=== PATIENT | female | born 1955 | race Hispanic/Latino ===

== ENCOUNTER → 2017-07-20 | Outpatient (CLI) | payer OTHER ==
--- NOTE | 2017-07-20 19:04 | Diagnostic Imaging Report ---
Exam: Cervical spine MRI without IV contrast History: Osteoarthritis. Pain and numbness in back of neck Comparison studies: None Technique: Sagittal T1, T2 and IR, axial T2 and axial gradient echo Intravenous contrast: None Findings: Alignment: Straightened cervical curvature. Cervicomedullary junction: No abnormalities. Patent foramen magnum. Soft tissues: No T2 hyperintense inflammatory changes. Spinal cord: Normal in size and signal from the foramen magnum through T1. Vertebrae: No fractures, infection or neoplasm. Degenerative changes: C2-C3: Patent canal and foramina. C3-C4: Small central disc protrusion indents the thecal sac without canal stenosis. Patent foramina. C4-C5: Mildly degenerated disc. Small disc osteophyte complex indents the thecal sac without significant canal stenosis. Mild bilateral frontal stenosis due to uncovertebral arthrosis C5-C6: Moderately degenerated disc. Moderate canal stenosis due to disc osteophyte complex and uncovertebral arthrosis. Moderate bilateral foraminal stenosis due to uncovertebral arthrosis. C6-C7: Mild bilateral foraminal stenosis due to uncovertebral arthrosis. No canal stenosis. C7-T1: Patent canal and foramina. IMPRESSION: 1. Degenerative changes at C5-C6 with moderate disc degeneration, moderate canal stenosis and moderate bilateral foraminal stenosis 2. Additional mild multilevel degenerative changes without significant canal or foraminal stenosis at the remaining cervical levels. 3. No cervical cord signal abnormalities. Signed by: Dr. Bernard Walker M.D. on 07/20/2017 7:01 PM
== END ==
LOC: MRI 10:34
PROVIDERS: ATTEND Internal Medicine Cardiovascular Disease
DX: R07.9 Chest pain, unspecified (principal); M15.9 Polyosteoarthritis, unspecified
CPT/HCPCS: 72141

== ENCOUNTER 2022-04-15 08:47 | Inpatient (IN) | payer MEDICARE, BC ==
[2022-04-13 15:31] LABS: BASOPHILS % 0.5 % (0.0-1.0); EOSINOPHILS # (AUTO) 0.1 (0.0-0.4); EOSINOPHILS % 1.5 % (0.0-6.0); HEMATOCRIT 38.2 % (34.2-44.1); HEMOGLOBIN 12.2 g/dL (12.0-16.0); LYMPHOCYTES # (AUTO) 3.4 (1.0-3.2); LYMPHOCYTES % 45.6 % (18.0-39.1); MEAN CORPUSCULAR HEMOGLOBIN 31.1 pg (28-32); MEAN CORPUSCULAR HGB CONC 31.9 g/dL (31-35); MEAN CORPUSCULAR VOLUME 97.4 fL (81-99); MONOCYTES # (AUTO) 0.5 (0.2-0.8); MONOCYTES % 6.8 % (4.4-11.3); NEUTROPHILS # (AUTO) 3.4 (2.1-6.9); NEUTROPHILS % 45.5 % (38.7-80.0); PLATELET COUNT 331 x10e3/uL (140-360); RED BLOOD COUNT 3.92 x10e6/uL (3.6-5.1); RED CELL DISTRIBUTION WIDTH 11.7 % (11.7-14.4)
[2022-04-13 15:48] LABS: ANION GAP 13.2 mmol/L (8-16); CALCIUM 8.9 mg/dL (8.4-10.2); CREATININE, SERUM 0.75 mg/dL (0.57-1.11); POTASSIUM 4.2 mmol/L (3.5-5.1)
[~2022-04-15] VITALS: Ht 149.9 cm; Wt 77.6 kg
[~2022-04-15 08:47] MED LIST: CLONAZEPAM0.5 MG PO; HUMALOG100 UNIT/1 SQ; HYDROCODON-ACE1 EA11 PO; LEVOTHYROXINE75 MCG PO; TRAZODONE HCL100 MG PO; TRESIBA100 UNIT/1 SQ; VITAMIN B122500 MCG SL; VITAMIN D3250 MCG PO
[2022-04-15] MEDS ORDERED: SILVER SULFADIAZINE 25 GM CREAM..G. TP ONE (09:09)
[2022-04-15] MEDS ORDERED: GENTAMICIN 80MG/NS 100 ML 200 ML IV ONE (09:36)
[2022-04-15] MEDS ORDERED: CLINDAMYCIN 600MG / 50ML 50 ML IV ONE (09:36)
[2022-04-15] MEDS ORDERED: LEVOFLOXACIN 500MG/D5W 100ML 100 ML IV ONE (09:37)
[2022-04-15] MEDS ORDERED: LIDOCAINE 2%/ EPINEPHRINE 20ML MDV ONE (11:05)
[2022-04-15] MEDS ORDERED: GENTAMICIN SULFATE 40 MG/ML 2 ML VIAL ONE (11:05)
[2022-04-15] MEDS ORDERED: BACITRACIN ZINC 15 GM OINT ONE (11:05)
[2022-04-15] MEDS ORDERED: IOPAMIDOL 300MG/ML 50ML INFUS..BTL IV ONE (11:06)
[2022-04-15] MEDS ORDERED: BUPIVACAINE HCL 0.5% INJ 30 ML VIAL INJ ONE (11:06)
[2022-04-15] MEDS ORDERED: MIDAZOLAM HCL 2 MG/2 ML VIAL ONE (13:06)
[2022-04-15] MEDS ORDERED: FENTANYL CITRATE/PF 100MCG/2 ML INJ ONE ×2 (13:06→14:28)
[2022-04-15] MEDS ORDERED: ACETAMINOPHEN 1000 MG/100 ML IV PRN (14:00)
[2022-04-15] MEDS ORDERED: ONDANSETRON HCL INJ 2MG/ML 2ML 2 MG/ML VIAL IV PRN (14:00)
[2022-04-15] MEDS ORDERED: DIPHENHYDRAMINE HCL 25 MG CAP PO PRN (14:00)
[2022-04-15] MEDS ORDERED: SUGAMMADEX SODIUM 200 MG/2 ML VIAL IV ONE (14:17)
[2022-04-15] MEDS ORDERED: HYDROMORPHONE 1MG/1ML INJ ONE (14:33)
[2022-04-15] MEDS ORDERED: PROMETHAZINE HCL (IM) 25 MG/ML VIAL IM ONE (14:39)
[2022-04-15 15:58] VITALS: BP 123/58
[2022-04-15 16:00] VITALS: BP 123/58
[2022-04-15 16:10] LABS: BASOPHILS % 0.2 % (0.0-1.0); HEMATOCRIT 38.2 % (34.2-44.1); HEMOGLOBIN 12.3 g/dL (12.0-16.0); LYMPHOCYTES # (AUTO) 1.1 (1.0-3.2); LYMPHOCYTES % 11.4 % (18.0-39.1); MEAN CORPUSCULAR HEMOGLOBIN 31.2 pg (28-32); MEAN CORPUSCULAR HGB CONC 32.2 g/dL (31-35); MONOCYTES # (AUTO) 0.1 (0.2-0.8); NEUTROPHILS # (AUTO) 8.2 (2.1-6.9); PLATELET COUNT 300 x10e3/uL (140-360); RED BLOOD COUNT 3.94 x10e6/uL (3.6-5.1); RED CELL DISTRIBUTION WIDTH 11.9 % (11.7-14.4)
[2022-04-15 16:30] LABS: ANION GAP 14.5 mmol/L (8-16); CALCIUM 8.6 mg/dL (8.4-10.2); CREATININE, SERUM 0.73 mg/dL (0.57-1.11); POTASSIUM 3.5 mmol/L (3.5-5.1)
[2022-04-15] MEDS: SODIUM CHLORIDE 0.9% 1000ML 1,000 ML IV SCH (17:13)
[2022-04-15] MEDS: DOCUSATE SODIUM 100 MG CAP PO SCH (17:13)
[2022-04-15 20:00] VITALS: BP 107/53
[2022-04-15 21:00] VITALS: BP 107/53
[2022-04-15] MEDS: HYDROCODONE/APAP 10MG-325MG TAB PO PRN (23:22)
[2022-04-15] MEDS: TRAZODONE HCL 50 MG TAB PO SCH (23:45)
[2022-04-16] VITALS (8 sets, daily range): BP systolic 98–110; BP diastolic 45–63
[2022-04-16] MEDS: PHENAZOPYRIDINE HCL 100 MG TAB PO PRN ×4 (00:09→16:33)
[2022-04-16] MEDS: CLONAZEPAM 0.5 MG TAB PO PRN ×2 (00:10→20:10)
[2022-04-16] MEDS: HYDROCODONE/APAP 10MG-325MG TAB PO PRN ×5 (03:38→23:10)
[2022-04-16 05:48] LABS: BASOPHILS % 0.2 % (0.0-1.0); EOSINOPHILS % 0.2 % (0.0-6.0); HEMATOCRIT 29.9 % (34.2-44.1); HEMOGLOBIN 10.4 g/dL (12.0-16.0); LYMPHOCYTES % 16.8 % (18.0-39.1); MEAN CORPUSCULAR HEMOGLOBIN 31.6 pg (28-32); MEAN CORPUSCULAR HGB CONC 34.8 g/dL (31-35); MEAN CORPUSCULAR VOLUME 90.9 fL (81-99); MONOCYTES # (AUTO) 0.5 (0.2-0.8); MONOCYTES % 4.5 % (4.4-11.3); NEUTROPHILS # (AUTO) 9.2 (2.1-6.9); NEUTROPHILS % 77.9 % (38.7-80.0); PLATELET COUNT 263 x10e3/uL (140-360); RED BLOOD COUNT 3.29 x10e6/uL (3.6-5.1); RED CELL DISTRIBUTION WIDTH 11.9 % (11.7-14.4)
[2022-04-16 06:17] LABS: ANION GAP 11.7 mmol/L (8-16); CALCIUM 7.9 mg/dL (8.4-10.2); CREATININE, SERUM 0.64 mg/dL (0.57-1.11); POTASSIUM 3.7 mmol/L (3.5-5.1)
[2022-04-16] MEDS: SODIUM CHLORIDE 0.9% 1000ML 1,000 ML IV SCH ×2 (06:23→16:43)
[2022-04-16] MEDS: NON-FORMULARY MEDICATION (Insulin Degludec (Tresiba) 25 UNITS) SQ SCH (09:00)
[2022-04-16] MEDS: DOCUSATE SODIUM 100 MG CAP PO SCH ×2 (09:20→16:34)
[2022-04-16] MEDS: LEVOTHYROXINE SODIUM 75 MCG TAB PO SCH (09:20)
[2022-04-16] MEDS: LEVOFLOXACIN 500MG/D5W 100ML 100 ML IV SCH (09:21)
[2022-04-16] MEDS ORDERED: ROCURONIUM BROMIDE 10 MG/ML 5ML VIAL IV ONE (13:53)
[2022-04-16] MEDS ORDERED: SEVOFLURANE INHAL SOLN 250 ML PEN BTL ONE (13:53)
[2022-04-16] MEDS ORDERED: LIDOCAINE HCL 2% LOCAL INJ 5 ML SDV VIAL INJ ONE (13:53)
[2022-04-16] MEDS ORDERED: PROPOFOL IV EMULSION 10 MG/ML 20 ML VIAL ONE (13:53)
[2022-04-16] MEDS ORDERED: DEXAMETHASONE SOD PHOS INJ 4 MG/ML SDV ONE (13:53)
[2022-04-16] MEDS ORDERED: POVIDONE IODINE 0.05% 0.05 % ML PO ONE (13:53)
[2022-04-16] MEDS ORDERED: ONDANSETRON HCL INJ 2MG/ML 2ML 2 MG/ML VIAL ONE (13:53)
[2022-04-16] MEDS: TRAZODONE HCL 50 MG TAB PO SCH (20:09)
[2022-04-17] VITALS: BP 118/58
[2022-04-17 04:00] VITALS: BP 118/57
[2022-04-17 05:57] LABS: BASOPHILS % 0.2 % (0.0-1.0); EOSINOPHILS # (AUTO) 0.1 (0.0-0.4); EOSINOPHILS % 0.7 % (0.0-6.0); HEMATOCRIT 32.2 % (34.2-44.1); HEMOGLOBIN 10.9 g/dL (12.0-16.0); LYMPHOCYTES # (AUTO) 2.7 (1.0-3.2); LYMPHOCYTES % 31.8 % (18.0-39.1); MEAN CORPUSCULAR HEMOGLOBIN 31.1 pg (28-32); MEAN CORPUSCULAR HGB CONC 33.9 g/dL (31-35); MEAN CORPUSCULAR VOLUME 91.7 fL (81-99); MONOCYTES # (AUTO) 0.5 (0.2-0.8); MONOCYTES % 5.8 % (4.4-11.3); NEUTROPHILS # (AUTO) 5.2 (2.1-6.9); NEUTROPHILS % 61.3 % (38.7-80.0); PLATELET COUNT 269 x10e3/uL (140-360); RED BLOOD COUNT 3.51 x10e6/uL (3.6-5.1); RED CELL DISTRIBUTION WIDTH 12.2 % (11.7-14.4)
[2022-04-17 06:17] LABS: ANION GAP 12.6 mmol/L (8-16); CALCIUM 8.4 mg/dL (8.4-10.2); CREATININE, SERUM 0.65 mg/dL (0.57-1.11); POTASSIUM 3.6 mmol/L (3.5-5.1)
[2022-04-17 08:38] VITALS: BP 116/51
[2022-04-17] MEDS: LEVOFLOXACIN 500MG/D5W 100ML 100 ML IV SCH (08:41)
[2022-04-17] MEDS: PHENAZOPYRIDINE HCL 100 MG TAB PO PRN (08:42)
[2022-04-17] MEDS: NON-FORMULARY MEDICATION (Insulin Degludec (Tresiba) 25 UNITS) SQ SCH (08:42)
[2022-04-17] MEDS: DOCUSATE SODIUM 100 MG CAP PO SCH (08:42)
[2022-04-17] MEDS: LEVOTHYROXINE SODIUM 75 MCG TAB PO SCH (08:42)
[2022-04-17 08:50] VITALS: BP 116/51
[2022-04-17] MEDS ORDERED: NON-FORMULARY MEDICATION (Cholecalciferol (Vitamin D3) (Vitamin D3) 50,000 UNITS) PO SCH (09:00)
[2022-04-17] MEDS ORDERED: ONDANSETRON HCL 4 MG ORAL DISINTEGRATING TAB PO PRN (11:15)
[2022-04-18] MEDS ORDERED: LEVOFLOXACIN 500 MG TAB PO SCH (09:00)
== END 2022-04-17 11:24 | disposition home health service (06) | DRG 748 ==
LOC: OR 08:47 → PACU V 13:55 → MED/SURG3 15:34
PROVIDERS: ADMIT Urology; ATTEND Urology
PROC: 0TSD4ZZ Reposition Urethra, Percutaneous Endoscopic Approach (ICD-10-PCS; 2022-04-15)
PROC: 0T788ZZ Dilation of Bilateral Ureters, Via Natural or Artificial Opening Endoscopic (ICD-10-PCS; 2022-04-15)
PROC: BT141ZZ Fluoroscopy of Kidneys, Ureters and Bladder using Low Osmolar Contrast (ICD-10-PCS; 2022-04-15)
PROC: 0JUC3KZ Supplement of Pelvic Region Subcutaneous Tissue and Fascia with Nonautologous Tissue Substitute, Percutaneous Approach (ICD-10-PCS; principal; 2022-04-15 12:19)
DX: N81.10 Cystocele, unspecified (principal); E11.69 Type 2 diabetes mellitus with other specified complication; E03.9 Hypothyroidism, unspecified; Z68.34 Body mass index [BMI] 34.0-34.9, adult; R32 Unspecified urinary incontinence; E66.09 Other obesity due to excess calories; N39.3 Stress incontinence (female) (male); Z20.822 Contact with and (suspected) exposure to COVID-19; K66.0 Peritoneal adhesions (postprocedural) (postinfection); G89.29 Other chronic pain; Z88.0 Allergy status to penicillin; E78.5 Hyperlipidemia, unspecified
CPT/HCPCS: 0223U; 36415; 51700; 71046; 74420; 80048; 82948; 83735; 85025; 93005; 94799; 96361; C1713; C1752; C1758; J1100; J1170; J1580; J1956; J2001; J2250; J2405; J2550; J3010; J7030

== ENCOUNTER 2024-02-03 18:45 | Emergency (ER) | payer MEDICARE, BC ==
[~2024-02-03] VITALS: Ht 149.9 cm; Wt 77.6 kg
[2024-02-03 19:53] LABS: BASOPHILS % 0.6 % (0.0-1.0); EOSINOPHILS # (AUTO) 0.2 (0.0-0.4); EOSINOPHILS % 2.2 % (0.0-6.0); HEMATOCRIT 35.2 % (34.2-44.1); HEMOGLOBIN 11.8 g/dL (12.0-16.0); LYMPHOCYTES # (AUTO) 2.9 (1.0-3.2); LYMPHOCYTES % 40.6 % (18.0-39.1); MEAN CORPUSCULAR HEMOGLOBIN 32.6 pg (28-32); MEAN CORPUSCULAR HGB CONC 33.5 g/dL (31-35); MEAN CORPUSCULAR VOLUME 97.2 fL (81-99); MONOCYTES # (AUTO) 0.5 (0.2-0.8); MONOCYTES % 6.8 % (4.4-11.3); NEUTROPHILS # (AUTO) 3.5 (2.1-6.9); NEUTROPHILS % 49.5 % (38.7-80.0); PLATELET COUNT 281 x10e3/uL (140-360); RED BLOOD COUNT 3.62 x10e6/uL (3.6-5.1); RED CELL DISTRIBUTION WIDTH 11.9 % (11.7-14.4); WHITE BLOOD COUNT 7.16 x10e3/uL (4.8-10.8)
[2024-02-03] MEDS: ONDANSETRON HCL INJ 2MG/ML 2ML 2 MG/ML VIAL IV STA (20:00)
[2024-02-03] MEDS: SODIUM CHLORIDE 0.9% 1000ML 1,000 ML IV STA (20:01)
[2024-02-03] MEDS: Morphine 4mg INJECTION 4 MG/ML INJ IV STA (20:01)
[2024-02-03 20:11] VITALS: PULSE 69; RESP 17; TEMP 98.2
[2024-02-03 20:17] LABS: ALBUMIN 3.9 g/dL (3.5-5.0); ALBUMIN/GLOBULIN RATIO 1.1 (0.8-2.0); ANION GAP 13.9 mmol/L (8-16); BILIRUBIN,TOTAL 0.2 mg/dL (0.2-1.2); CALCIUM 8.6 mg/dL (8.4-10.2); CREATININE, SERUM 0.73 mg/dL (0.57-1.11); POTASSIUM 3.9 mmol/L (3.5-5.1); TOTAL PROTEIN 7.3 g/dL (6.5-8.1)
[2024-02-03 20:23] LABS: TROPONIN I 0.002 ng/mL (0-0.300)
[2024-02-03 20:30] LABS: CLARITY,URINE CLEAR (CLEAR); COLOR,URINE YELLOW (YELLOW); PH,URINE 6.5 (5 - 7)
[2024-02-03 20:31] LABS: BILIRUBIN,URINE NEGATIVE (NEGATIVE); GLUCOSE, URINE NEGATIVE (NEGATIVE); KETONES,URINE NEGATIVE (NEGATIVE); LEUKOCYTE ESTERASE ,URINE NEGATIVE (NEGATIVE); NITRITE,URINE NEGATIVE (NEGATIVE); PROTEIN,URINE DIPSTICK NEGATIVE (NEGATIVE); URINE UROBILINOGEN 0.2 mg/dL (0.2 - 1)
[2024-02-03 20:42] LABS: BACTERIA,URINE FEW /HPF; EPITHELIAL CELLS,URINE MODERATE /LPF; RBC,URINE 0-5 /HPF (0-5); WBC,URINE (MAN) 0-5 /HPF (0-5)
[2024-02-03] MEDS: KETOROLAC TROMETHAMINE 30 MG/ML VIAL IV STA (21:19)
[2024-02-03 22:43] VITALS: BP 118/64; PULSE 68; RESP 18; TEMP 98.2; O2SAT 97
== END 2024-02-03 22:51 | disposition home or self-care (01) ==
LOC: ER 18:48
DX: R10.31 Right lower quadrant pain (principal); R33.9 Retention of urine, unspecified; K59.00 Constipation, unspecified; R11.2 Nausea with vomiting, unspecified; E11.65 Type 2 diabetes mellitus with hyperglycemia; E03.9 Hypothyroidism, unspecified; F41.9 Anxiety disorder, unspecified; Z98.84 Bariatric surgery status
CPT/HCPCS: 36415; 74177; 80053; 81001; 82550; 83690; 84484; 85025; 87086; 93005; 99284; J1885; J2270; J2405; J7030

== ENCOUNTER 2024-07-02 14:03 | Emergency (ER) | payer MEDICARE, BC ==
[~2024-07-02] VITALS: Ht 149.9 cm; Wt 63.5 kg
[2024-07-02 14:19] VITALS: TEMP 99
[2024-07-02] MEDS ORDERED: BENZONATATE100 MG PO (14:25)
[2024-07-02 14:33] VITALS: PULSE 74; RESP 15
[2024-07-02 14:55] LABS: CORONAVIRUS COVID-19 AG NEGATIVE (NEGATIVE); INFLUENZA A AG NEGATIVE (NEGATIVE); INFLUENZA B AG NEGATIVE (NEGATIVE)
[2024-07-02 15:26] VITALS: BP 101/65; PULSE 69; RESP 18; O2SAT 99
== END 2024-07-02 15:53 | disposition home or self-care (01) ==
LOC: ER 14:08
DX: R05.9 Cough, unspecified (principal); B34.9 Viral infection, unspecified; R09.89 Other specified symptoms and signs involving the circulatory and respiratory systems; E11.9 Type 2 diabetes mellitus without complications; E03.9 Hypothyroidism, unspecified; F41.9 Anxiety disorder, unspecified; F32.A Depression, unspecified; Z11.52 Encounter for screening for COVID-19
CPT/HCPCS: 99282

== ENCOUNTER 2024-11-21 12:06 | Emergency (ER) | payer MEDICARE, BC ==
[~2024-11-21] VITALS: Ht 142.2 cm; Wt 59.0 kg
[~2024-11-21 12:06] MED LIST changes: +BENZONATATE100 MG PO
[2024-11-21 13:56] VITALS: PULSE 72; RESP 16; TEMP 98.7
[2024-11-21 14:17] LABS: BASOPHILS % 0.6 % (0.0-1.0); EOSINOPHILS % 0.7 % (0.0-6.0); LYMPHOCYTES % 33.5 % (18.0-39.1); MONOCYTES % 5.2 % (4.4-11.3); NEUTROPHILS % 59.8 % (38.7-80.0); RED CELL DISTRIBUTION WIDTH 11.7 % (11.7-14.4)
[2024-11-21 14:26] LABS: INR 0.87
[2024-11-21 14:36] LABS: EST GLOMERULAR FILTRATION RATE 94 ML/MIN (>=60)
[2024-11-21 15:26] LABS: LEUKOCYTE ESTERASE ,URINE NEGATIVE (NEGATIVE); PROTEIN,URINE DIPSTICK NEGATIVE (NEGATIVE); URINE UROBILINOGEN 0.2 mg/dL (0.2 - 1)
[2024-11-21 15:37] LABS: AMPHETAMINES SCREEN,URINE NEGATIVE (NEGATIVE); CANNABINOIDS SCREEN,URINE NEGATIVE (NEGATIVE); COCAINE SCREEN,URINE NEGATIVE (NEGATIVE); METHADONE SCREEN, URINE NEGATIVE (NEGATIVE); OPIATES SCREEN,URINE POSITIVE (NEGATIVE)
[2024-11-21] MEDS: SODIUM CHLORIDE 0.9% 1000ML 1,000 ML IV STA (16:32)
[2024-11-21] MEDS: ONDANSETRON HCL INJ 2MG/ML 2ML 2 MG/ML VIAL IV STA (16:32)
[2024-11-21 19:12] VITALS: BP 120/67; PULSE 76; RESP 16; TEMP 98.4; O2SAT 98
== END 2024-11-21 17:52 | disposition home or self-care (01) ==
LOC: ER 13:41
DX: R20.0 Anesthesia of skin (principal); R11.0 Nausea; T36.0X1A Poisoning by penicillins, accidental (unintentional), initial encounter; E11.9 Type 2 diabetes mellitus without complications; E03.9 Hypothyroidism, unspecified; F41.9 Anxiety disorder, unspecified; F32.A Depression, unspecified; Z98.84 Bariatric surgery status
CPT/HCPCS: 36415; 80053; 80307; 80329 ×2; 81001; 83735; 85025; 85610; 85730; 93005; 99283; J2405; J7030

== ENCOUNTER 2025-02-19 18:12 | Emergency (ER) | payer MEDICARE, BC ==
[~2025-02-19] VITALS: Ht 142.2 cm; Wt 65.8 kg
[2025-02-19 19:40] LABS: STREPTOCOCCUS GRP A ANTIGEN NEGATIVE (NEGATIVE)
[2025-02-19 19:49] LABS: CORONAVIRUS COVID-19 AG NEGATIVE (NEGATIVE)
[2025-02-19 20:44] VITALS: PULSE 80; RESP 16; TEMP 97.9
[2025-02-19 20:47] VITALS: BP 108/65; PULSE 80; RESP 16; TEMP 97.9; O2SAT 99
== END 2025-02-19 20:44 | disposition home or self-care (01) ==
LOC: ER 19:20
DX: R05.9 Cough, unspecified (principal); J06.9 Acute upper respiratory infection, unspecified; E11.9 Type 2 diabetes mellitus without complications; E03.9 Hypothyroidism, unspecified; F41.9 Anxiety disorder, unspecified; F32.A Depression, unspecified; Z11.52 Encounter for screening for COVID-19; Z98.84 Bariatric surgery status
CPT/HCPCS: 71046; 83518; 87070; 99283